=== PATIENT | male | born 1995 | race Caucasian/White ===

== ENCOUNTER 2017-10-15 21:27 | Observation (INO) | payer OTHER ==
[2017-10-15 22:34] LABS: Absolute Lymphocytes (CBC) 2.1 K/uL (0.7-4.9); Absolute Monocytes 1.2 K/uL (0.1-1.3); Absolute Neutrophil 11.3 K/uL (1.8-8.0); Albumin 4.5 g/dL (3.4-5.0); Basophils % 0.3 % (0-1.3); Bilirubin Direct 0.1 mg/dL (0-0.2); Bilirubin Total 0.6 mg/dL (0.2-1.0); Eosinophils % 0.9 % (0-4.4); Hematocrit 42.4 % (39.6-49.0); Lymphocytes % 14.4 % (15.3-44.8); MCH 30.6 pg (27.0-35.0); MCV 89.7 fL (80-100); MPV 8.4 fL (7.6-11.3); Monocytes % 7.9 % (3.3-12.3); Protein, Total 8.4 g/dL (6.4-8.2); RBC Red Blood Cell Count 4.73 M/uL (4.33-5.43)
[2017-10-15 23:02] LABS: Urine Blood NEGATIVE (NEG); Urine Glucose NEGATIVE (NEG); Urine Protein 1+ (NEG); Urine Specific Gravity 1.025 (1.005-1.030)
[2017-10-15] MEDS ORDERED: ONDANSETRON 4 MG/2 ML VIAL ONE (23:50)
[2017-10-16] MEDS ORDERED: PIPER/TAZO/NS 3.375gm 3.375 GM/100 ML BAG ONE (01:44)
--- NOTE | 2017-10-16 01:52 | EDPHYS ---
Physician Documentation [facility] Name: Sachin Manjarrez Age: 22 yrs Sex: Male : 1995 Arrival Date: 10/15/2017 Time: 21:28 Bed 16 Private MD: ED Physician Hans Pride HPI: 10/15 22:09 This 22 yrs old Male presents to ER via Ambulatory with complaints of jr8 Abdominal Pain, Testicular Pain. 22:09 The patient presents with abdominal pain right lower quadrant. Onset: The jr8 symptoms/episode began/occurred acutely, today. The symptoms radiate to right testicle. Associated signs and symptoms: none. The symptoms are described as sharp. Modifying factors: The symptoms are alleviated by nothing, the symptoms are aggravated by nothing. Severity of pain: At its worst the pain was moderate in the emergency department the pain is unchanged. The patient has not experienced similar symptoms in the past. Patient stated that the pain started while playing basketball. Denies trauma . Historical: - Allergies: 21:35 No Known Allergies; aa1 - Home Meds: 21:35 None [Active]; aa1 - PMHx: 21:35 None; aa1 - PSHx: 21:35 Tonsillectomy; Adenoids; aa1 - Immunization history:: Adult Immunizations up to date. - Social history:: Smoking status: Patient/guardian denies using tobacco. - Ebola Screening: : No symptoms or risks identified at this time. ROS: 22:09 Eyes: Negative for injury, pain, redness, and discharge, ENT: Negative for injury, jr8 pain, and discharge, Neck: Negative for injury, pain, and swelling, Cardiovascular: Negative for chest pain, palpitations, and edema, Respiratory: Negative for shortness of breath, cough, wheezing, and pleuritic chest pain, Back: Negative for injury and pain, MS/Extremity: Negative for injury and deformity, Skin: Negative for injury, rash, and discoloration, Neuro: Negative for headache, weakness, numbness, tingling, and seizure. 22:09 Abdomen/GI: Positive for abdominal pain, Negative for nausea, vomiting, and diarrhea, abdominal cramps, abdominal distension, anorexia, dysphagia, hematemesis, black/tarry stool, rectal pain, rectal bleeding, bowel incontinence, flatulence. 22:09 : Positive for testicular pain Negative for urinary symptoms, urinary frequency, small amounts, burning with urination, penile discharge, penile pain. Exam: 22:09 Eyes: Pupils equal round and reactive to light, extra-ocular motions intact. Lids and jr8 lashes normal. Conjunctiva and sclera are non-icteric and not injected. Cornea within normal limits. Periorbital areas with no swelling, redness, or edema. ENT: Nares patent. No nasal discharge, no septal abnormalities noted. Tympanic membranes are normal and external auditory canals are clear. Oropharynx with no redness, swelling, or masses, exudates, or evidence of obstruction, uvula midline. Mucous membranes moist. Neck: Trachea midline, no thyromegaly or masses palpated, and no cervical lymphadenopathy. Supple, full range of motion without nuchal rigidity, or vertebral point tenderness. No Meningismus. Cardiovascular: Regular rate and rhythm with a normal S1 and S2. No gallops, murmurs, or rubs. Normal PMI, no JVD. No pulse deficits. Respiratory: Lungs have equal breath sounds bilaterally, clear to auscultation and percussion. No rales, rhonchi or wheezes noted. No increased work of breathing, no retractions or nasal flaring. Back: No spinal tenderness. No costovertebral tenderness. Full range of motion. Skin: Warm, dry with normal turgor. Normal color with no rashes, no lesions, and no evidence of cellulitis. MS/ Extremity: Pulses equal, no cyanosis. Neurovascular intact. Full, normal range of motion. Neuro: Awake and alert, GCS 15, oriented to person, place, time, and situation. Cranial nerves II-XII grossly intact. Motor strength 5/5 in all extremities. Sensory grossly intact. Cerebellar exam normal. Normal gait. 22:09 Abdomen/GI: Inspection: abdomen appears normal, Bowel sounds: active, all quadrants, Palpation: soft, in all quadrants, mild abdominal tenderness, in the right lower quadrant, mass, is not appreciated, rebound tenderness, is not appreciated, voluntary guarding, is not appreciated, involuntary guarding, is not appreciated, no appreciated organomegaly, Indicators: McBurney's point is not tender, Corey's sign is negative, Rovsing's sign is positive, Obturator sign is negative, Psoas sign is positive, Liver: no appreciated palpable abnormalities, Hernia: not appreciated. 22:09 : CVA tenderness, is absent, Male external genitalia: normal, no abrasion, no discharge, no erythema, no injury, no swelling, no tenderness, no evidence of ulceration. Vital Signs: 21:35 BP 117 / 75; Pulse 87; Resp 16; Temp 98.4; Pulse Ox 100% on R/A; Weight 56.7 kg; Height aa1 5 ft. 9 in. (175.26 cm); Pain 7/10; 22:39 BP 133 / 92; Pulse 64; Resp 18; Pulse Ox 100% on R/A; aa1 23:30 BP 132 / 89; Pulse 63; Resp 16; Pulse Ox 98% on R/A; aa1 10/16 01:16 BP 109 / 69; Pulse 80; Resp 16; Pulse Ox 97% ; aa1 02:00 BP 120 / 70; Pulse 66; Resp 16; Temp 98.6; Pulse Ox 96% on R/A; aa1 03:00 BP 109 / 78; Pulse 57; Resp 16; Temp 98.6; Pulse Ox 97% on R/A; aa1 10/15 21:35 Body Mass Index 18.46 (56.70 kg, 175.26 cm) aa MDM: 10/15 21:42 Patient medically screened. [facility] 10/16 01:42 Data reviewed: vital signs, nurses notes, lab test result(s), radiologic studies, CT jr8 scan, and as a result, I will admit patient. Data interpreted: Pulse oximetry: on room air is 97 %. Interpretation: normal. Counseling: I had a detailed discussion with the patient and/or guardian regarding: the historical points, exam findings, and any diagnostic results supporting the discharge/admit diagnosis, lab results, radiology results, the need for further work-up and treatment in the hospital. ED course: Dr. Pride called Dr. Chase for admission. Will see and admit patient. . 10/15 21:42 Order name: Basic Metabolic Panel; Complete Time: 22:50 8 10/15 21:42 Order name: CBC with Diff; Complete Time: 22:50 [facility] 10/15 21:42 Order name: Creatinine for Radiology; Complete Time: 22:50 10/15 21:42 Order name: Hepatic Function; Complete Time: 22:50 [facility] 10/15 22:01 Order name: Urine Dipstick--Ancillary (enter results); Complete Time: 23:06 2 10/15 22:04 Order name: CT Abd/Pelvis - W/Contrast [facility] 10/15 21:42 Order name: IV Saline Lock; Complete Time: 22:01 jr8 10/15 21:42 Order name: Labs collected and sent; Complete Time: 22: [facility] 10/15 21:42 Order name: Urine Dipstick-Ancillary (obtain specimen); Complete Time: 22: [facility] Administered Medications: 10/15 23:53 Drug: Zofran 4 mg Route: IVP; Site: left antecubital; 10/16 01:45 Follow up: Response: No adverse reaction; Nausea unchanged aa1 01:45 Drug: Zosyn 3.375 grams Route: IVPB; Infused Over: 60 mins; Site: left antecubital; aa1 02:45 Follow up: IV Status: Completed infusion aa1 01:50 Drug: NS 0.9% 1000 ml Route: IV; Rate: 100 ml/hr; Site: left antecubital; aa1 03:18 Follow up: IV Status: Infusion continued upon admission aa1 01:50 Drug: Phenergan 12.5 mg Route: IVP; Site: left antecubital; aa1 03:18 Follow up: Response: No adverse reaction; Nausea is decreased aa1 Disposition: 20:34 Co-signature as Attending Physician, Hans Pride MD I agree with the assessment and wa plan of care. Disposition: 10/16/17 01:51 Hospitalization ordered by Darrius Chase for Inpatient Admission. Preliminary diagnosis is Acute appendicitis. - Bed requested for Telemetry/MedSurg (Inpatient). - Status is Inpatient Admission. ea - Condition is Stable. - Problem is new. - Symptoms are unchanged. UTI on Admission? No Signatures: Dispatcher [employer] Socorro Barnard RN RN kl Kern, Alissa, RN RN aa1 Alan Villanueva PA PA jr8 Nickie Degroot RN RN ea Appiah, William, MD MD wi Corrections: (The following items were deleted from the chart) 03:07 01:51 Hospitalization Ordered by Darrius Chase MD for Inpatient Admission. Preliminary kl diagnosis is Acute appendicitis. Bed requested for Telemetry/MedSurg (Inpatient). Status is Inpatient Admission. Condition is Stable. Problem is new. Symptoms are unchanged. UTI on Admission? No. jr8 03:31 03:07 10/16/2017 01:51 Hospitalization Ordered by Darrius Chase MD for Inpatient ea Admission. Preliminary diagnosis is Acute appendicitis. Bed requested for Telemetry/MedSurg (Inpatient). Status is Inpatient Admission. Condition is Stable. Problem is new. Symptoms are unchanged. UTI on Admission? No. kl
--- NOTE | 2017-10-16 01:52 | ER ---
Nurse's Notes [facility] Name: Sachin Manjarrez Age: 22 yrs Sex: Male : 1995 Arrival Date: 10/15/2017 Time: 21:28 Bed 16 Private MD: Diagnosis: Acute appendicitis Presentation: 10/15 21:34 Presenting complaint: Patient states: RLQ pain that radiates to groin x 2 hours. aa1 Reports pain began suddenly while playing basketball. Denies N/V or fever. Transition of care: patient was not received from another setting of care. Onset of symptoms was October 15, 2017. Risk Assessment: Do you want to hurt yourself or someone else? Patient reports no desire to harm self or others. Initial Sepsis Screen: Does the patient meet any 2 criteria? No. Patient's initial sepsis screen is negative. Does the patient have a suspected source of infection? Yes: Acute abdominal pain. Care prior to arrival: None. 21:34 Method Of Arrival: Ambulatory aa1 21:34 Acuity: EDDY 3 aa1 Triage Assessment: 21:35 General: Appears in no apparent distress. comfortable, Behavior is calm, cooperative, aa1 appropriate for age. Historical: - Allergies: 21:35 No Known Allergies; aa1 - Home Meds: 21:35 None [Active]; aa1 - PMHx: 21:35 None; aa1 - PSHx: 21:35 Tonsillectomy; Adenoids; aa1 - Immunization history:: Adult Immunizations up to date. - Social history:: Smoking status: Patient/guardian denies using tobacco. - Ebola Screening: : No symptoms or risks identified at this time. Screenin:06 Abuse screen: Denies threats or abuse. Denies injuries from another. Nutritional aa1 screening: No deficits noted. Tuberculosis screening: No symptoms or risk factors identified. Fall Risk None identified. Assessment: 22:06 General: Appears in no apparent distress. comfortable, Behavior is calm, cooperative, aa1 appropriate for age. Pain: Complains of pain in right lower quadrant Pain radiates to groin Pain began 2 hours ago. Is continuous. Neuro: Level of Consciousness is awake, alert, obeys commands, Oriented to person, place, time, situation, Moves all extremities. Full function Gait is steady. Respiratory: Airway is patent Respiratory effort is even, unlabored, Respiratory pattern is regular, symmetrical. GI: Abdomen is non-distended, Bowel sounds present X 4 quads. Abd is soft X 4 quads Abdomen is tender to palpation in right lower quadrant Patient currently denies diarrhea, nausea, vomiting. : Reports pain in right in suprapubic area lower quadrant(s). EENT: No signs and/or symptoms were reported regarding the EENT system. Derm: Skin is intact, is healthy with good turgor, Skin is pink, warm \T\ dry. Musculoskeletal: Circulation, motion, and sensation intact. Capillary refill < 3 seconds. 22:40 Reassessment: Patient appears in no apparent distress at this time. Patient and/or aa1 family updated on plan of care and expected duration. Pain level reassessed. Patient is alert, oriented x 3, equal unlabored respirations, skin warm/dry/pink. Awaiting CT. CT notified pt finished contrast 5 mins after it was delivered to pt. 10/16 00:05 Reassessment: Patient appears in no apparent distress at this time. Patient and/or aa1 family updated on plan of care and expected duration. Pain level reassessed. Patient is alert, oriented x 3, equal unlabored respirations, skin warm/dry/pink. Pt taken to CT at this time. 01:00 Reassessment: Patient appears in no apparent distress at this time. Patient and/or aa1 family updated on plan of care and expected duration. Pain level reassessed. Patient is alert, oriented x 3, equal unlabored respirations, skin warm/dry/pink. Awaiting CT results. 02:00 Reassessment: Patient appears in no apparent distress at this time. Patient and/or aa1 family updated on plan of care and expected duration. Pain level reassessed. Patient is alert, oriented x 3, equal unlabored respirations, skin warm/dry/pink. Pt to be admitted for acute appendicitis; awaiting bed assignment. 03:00 Reassessment: Patient appears in no apparent distress at this time. Patient and/or aa1 family updated on plan of care and expected duration. Pain level reassessed. Patient is alert, oriented x 3, equal unlabored respirations, skin warm/dry/pink. Awaiting bed assignment. 03:20 Reassessment: Report given to Vianney on 2nd floor. aa1 Vital Signs: 10/15 21:35 BP 117 / 75; Pulse 87; Resp 16; Temp 98.4; Pulse Ox 100% on R/A; Weight 56.7 kg; Height aa1 5 ft. 9 in. (175.26 cm); Pain 7/10; 22:39 BP 133 / 92; Pulse 64; Resp 18; Pulse Ox 100% on R/A; aa1 23:30 BP 132 / 89; Pulse 63; Resp 16; Pulse Ox 98% on R/A; aa1 10/16 01:16 BP 109 / 69; Pulse 80; Resp 16; Pulse Ox 97% ; aa1 02:00 BP 120 / 70; Pulse 66; Resp 16; Temp 98.6; Pulse Ox 96% on R/A; aa1 03:00 BP 109 / 78; Pulse 57; Resp 16; Temp 98.6; Pulse Ox 97% on R/A; aa1 10/15 21:35 Body Mass Index 18.46 (56.70 kg, 175.26 cm) aa1 ED Course: 10/15 21:28 Patient arrived in ED. ds1 21:35 Triage completed. aa1 21:35 Arm band placed on right wrist. Patient placed in an exam room, on a stretcher. aa1 21:42 Alan Villanueva PA is PHCP. jr8 21:42 Hans Pride MD is Attending Physician. jr8 21:49 Taty Novoa, RN is Primary Nurse. aj 21:50 Initial lab(s) drawn, by ED staff, sent to lab. Inserted saline lock: 20 gauge in right aa1 antecubital area, using aseptic technique. ,using aseptic technique. by Nickie Degroot RN Blood collected. 22:03 Taty Novoa, RN is Primary Nurse. aj 22:06 Patient has correct armband on for positive identification. Placed in gown. Bed in low aa1 position. Call light in reach. Pulse ox on. NIBP on. 10/16 00:[address] via wheelchair. kw1 00:23 CT Abd/Pelvis - W/Contrast In Process Unspecified. EDMS 00:24 CT completed. Patient tolerated procedure well. Patient moved back from CT. kw1 01:51 Darrius Chase MD is Hospitalizing Provider. jr8 03:13 No provider procedures requiring assistance completed. Patient admitted, IV remains in aa1 place. Administered Medications: 10/15 23:53 Drug: Zofran 4 mg Route: IVP; Site: left antecubital; ea 10/16 01:45 Follow up: Response: No adverse reaction; Nausea unchanged aa 01:45 Drug: Zosyn 3.375 grams Route: IVPB; Infused Over: 60 mins; Site: left antecubital; aa1 02:45 Follow up: IV Status: Completed infusion aa1 01:50 Drug: NS 0.9% 1000 ml Route: IV; Rate: 100 ml/hr; Site: left antecubital; aa1 03:18 Follow up: IV Status: Infusion continued upon admission aa1 01:50 Drug: Phenergan 12.5 mg Route: IVP; Site: left antecubital; aa1 03:18 Follow up: Response: No adverse reaction; Nausea is decreased aa Outcome: 01:51 Decision to Hospitalize by Provider. jr8 03:21 Admitted to Med/surg accompanied by tech, family with patient, via wheelchair, room aa1 210, with chart, Report called to Vianney 03:21 Condition: stable 03:21 Instructed on the need for admit, Demonstrated understanding of instructions. 03:31 Patient left the ED. ea Signatures: Dispatcher [employer] EDMS Vianney England, RN LYNDSEY aa1 Taty Novoa RN RN aj Sanford, Demi ds1 Alan Villanueva PA PA jr8 Nickie Degroot RN RN ea Wilhelm, Kimberly kw1
[2017-10-16] MEDS ORDERED: PROMETHAZINE 25 MG/ML VIAL ONE (01:53)
[2017-10-16] MEDS ORDERED: NA CHLORIDE 0.9% 1,000 ML ONE (01:53)
[2017-10-16] MEDS ORDERED: MORPHINE 4 MG/ML SYR IV PRN ×2 (03:35→09:09)
[2017-10-16] MEDS: NA CHLORIDE 0.9% 1,000 ML IV SCH ×2 (04:05→16:43)
[2017-10-16] MEDS: ONDANSETRON 4 MG/2 ML VIAL IV PRN ×2 (04:28→21:12)
[2017-10-16 05:16] VITALS: BMI 18.8
--- NOTE | 2017-10-16 07:36 | P.HP ---
Date of Service: 10/16/17 PC: This 22-year-old male presents emergency room with severe right lower quadrant abdominal pain for diagnosis and treatment. HPC: Patient notice history evening he was having increasing abdominal pain. Began to be more in the right lower quadrant. Radiating down to his testicle. Start hurt when he tried to walk or move. PMH: Negative PSHx: Negative SOC: No known allergy SYS REVIEW: The cough, wheeze, shortness of breath. No chest pain or palpitations. Denies any urinary complaints. O/E awake alert stable HEENT: Within normal limits Chest: Chest movement equal bilaterally ABD: Tenderness with guarding in the right lower quadrant LOCO: Intact DATA: Elevated white cell count, CT scan consistent with clinical findings of acute appendicitis IMPRESSION: Acute abdomen with appendicitis PLAN: I will take him to the operating room for laparoscopic possible open appendectomy. The risks of this procedure have been discussed. The possibility of bleeding, infection, injury to bowel and blood vessels has been described. The possible need for an open and/or further surgeries and procedures was discussed. He understands and wants to proceed.
[2017-10-16] MEDS ORDERED: PROPOFOL 200 MG/20 ML VIAL IV ONE (07:48)
[2017-10-16] MEDS ORDERED: LIDOCAINE 2% MPF 5 ML VIAL ONE (07:48)
[2017-10-16] MEDS ORDERED: FENTANYL CITR 100 MCG/2 ML ONE (07:48)
[2017-10-16] MEDS ORDERED: ROCURONIUM 50 MG/5 ML VIAL IV ONE (07:48)
[2017-10-16] MEDS ORDERED: PIPER/TAZO/NS 3.375gm 3.375 GM/100 ML BAG IVPB SCH (08:00)
[2017-10-16] MEDS: Ringers Lactate 1,000 ML IV ONE ×2 (08:15→08:49)
[2017-10-16] MEDS ORDERED: KETOROLAC 30 MG/ML INJ ONE (08:15)
[2017-10-16] MEDS ORDERED: DEXAMETHASONE 10 MG/ML VIAL ONE (08:15)
[2017-10-16] MEDS ORDERED: ONDANSETRON HCL 40 MG/20 ML VIAL ONE (08:16)
[2017-10-16] MEDS ORDERED: GLYCOPYRROLATE 0.2 MG/ML SYR ONE (08:19)
--- NOTE | 2017-10-16 08:37 | RAD REPORT ---
EXAM DESCRIPTION: CTAbdomen Pelvis W Contrast - 10/16/2017 4:15 am CLINICAL HISTORY: Abdominal pain. ABD PAIN COMPARISON: No comparisons TECHNIQUE: Biphasic CT imaging of the abdomen and pelvis was performed with 100 ml non-ionic IV cont rast. All CT scans are performed using dose optimization technique as appropriate and may include automated exposure control or mA/KV adjustment according to patient size. FINDINGS: The lung bases are clear. The liver, spleen, pancreas, adrenal glands and kidneys are within normal limits. No bowel obstruction, free air, free fluid or abscess. The appendix is dilated to 10 mm and demonstr ates surrounding inflammatory changes. Appendicolith is present. No evidence of significant lymphade nopathy. No suspicious bony findings. IMPRESSION: Acute appendicitis.
[2017-10-16] MEDS ORDERED: NEOSTIGMINE 1 MG/ML -5 ML SYRINGE ONE (08:40)
--- NOTE | 2017-10-16 08:42 | P.OP ---
Preoperative diagnosis: The abdomen with appendicitis Postoperative diagnosis: The same Primary procedure: Laparoscopic appendectomy Anesthesia: General Estimated blood loss: Less than 10 cc Specimen: 1 appendix Findings: Acute appendicitis Operative Technique: The patient brought the operating room and placed supine on the table. After the induction of adequate general endotracheal anesthesia, the area of the abdomen was prepped with a DuraPrep solution, and he was draped in usual aseptic manner. A subumbilical incision was made. This brought down through the skin and subcutaneous tissue. The Visiport was then used to enter the peritoneal cavity. A pneumoperitoneum was established to approximately 12 mm of mercury. A 5 mm trocar was placed. A lower midline, and another 5 and a right upper quadrant. The patient was placed in Trendelenburg and rolled to the left. We could visualize the cecum laying in the true pelvis. There were adhesions to the anterior abdominal wall. The appendix was identified. It was found to be acutely inflamed. Grasped in the body of the appendix. A window was made at the junction of the cecum with the appendix. The linear Stapler was now introduced through the umbilical port site. It was placed across the base of the appendix and fired. The mesentery of the appendix was taken down using judicious electro cautery. This pus was now placed into an Endo pouch, and brought out through the umbilical trocar site. The abdomen was inspected to ensure adequate hemostasis. The umbilical trocar site was approximated using the Endo Close an absorbable suture. The pneumoperitoneum was now collapsed, the trocars withdrawn, and the suture tied. Omero were then applied to the skin At the end of the procedure he was stable when sent to the recovery room. Needle sponge instrument count were correct. No drains were placed. Complications: None Transferred to: Recovery Room Condition: Good
[2017-10-16] MEDS: PIPER/TAZO/NS 3.375gm 3.375 GM/100 ML BAG IVPB SCH ×2 (08:45→16:45)
[2017-10-16] MEDS: HYDROCODONE/APAP 7.5/325 MG TAB PO PRN ×2 (16:42→21:11)
[2017-10-16 22:47] VITALS: O2SAT 98
[2017-10-17] MEDS: NA CHLORIDE 0.9% 1,000 ML IV SCH (01:15)
[2017-10-17] MEDS: PIPER/TAZO/NS 3.375gm 3.375 GM/100 ML BAG IVPB SCH (01:15)
[2017-10-17] MEDS: HYDROCODONE/APAP 7.5/325 MG TAB PO PRN (06:10)
--- NOTE | 2017-10-17 09:06 | P.PN ---
Date of Service: 10/17/17 S: Patient feels well today, has been up ambulating, voiding on its own. Pain is controlled on non narcotics. O: Incisions clean, dressings dry A: Surgically stable status post laparoscopic appendectomy P: Discharge home, patient is see me next week in my office. He is to call for appointment.
[2017-10-17 09:51] VITALS: BP 98/53; TEMP 97.8
== END 2017-10-17 10:24 | disposition home or self-care (01) ==
LOC: ER 21:27 → INTOOBSV 10-16 03:02 → ERHOLD 10-16 03:02 → 2ND 10-16 03:15
PROVIDERS: ADMIT Surgery; ATTEND Surgery
PROC: 0DTJ4ZZ Resection of Appendix, Percutaneous Endoscopic Approach (ICD-10-PCS; principal; 2017-10-16 08:00)
DX: K35.80 Unspecified acute appendicitis (principal)
CPT/HCPCS: 36415; 74177; 80048; 80076; 81003; 85025; 88304; 96361; 96365; 96375; 99285; G0378; J1100; J2405; J2543; J2550; J2710; J3010; J7030; Q9967

== ENCOUNTER 2018-04-21 22:13 | Emergency (ER) | payer OTHER ==
[2018-04-21] MEDS ORDERED: IBUPROFEN 400 MG TAB ONE (22:56)
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
[2018-04-22 01:13] VITALS: BP 127/80; TEMP 97.7; O2SAT 100
--- NOTE | 2018-04-22 08:14 | RAD REPORT ---
EXAM DESCRIPTION: RAD - Hand Right 3 View - 04/21/2018 10:56 pm CLINICAL HISTORY: PAIN Trauma, pain COMPARISON: No comparisons FINDINGS: Fracture is present involving the base of the fifth right metacarpal with mild adjacent so ft tissue swelling. No dislocation evident.
== END 2018-04-21 23:48 | disposition home or self-care (01) ==
LOC: ER 22:13
PROC: 2W3CX1Z Immobilization of Right Lower Arm using Splint (ICD-10-PCS; principal; 2018-04-21)
DX: S62.316A Displaced fracture of base of fifth metacarpal bone, right hand, initial encounter for closed fracture (principal); W22.8XXA Striking against or struck by other objects, initial encounter
CPT/HCPCS: 99283

== ENCOUNTER 2019-02-18 07:23 | Emergency (ER) | payer OTHER ==
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
--- NOTE | 2019-02-18 08:14 | EDPHYS ---
Physician Documentation [facility] Name: Sachin Manjarrez Age: 23 yrs Sex: Male : 1995 Arrival Date: 02/18/2019 Time: 07:26 Bed 15 Private MD: ED Physician Coleman Glez HPI: 02/18 08:10 This 23 yrs old Male presents to ER via Ambulatory with complaints of Pain rn With Urination. 08:10 The patient presents with a possible STD exposure, symptoms include dysuria, green rn penile discharge. 08:10 Onset: The symptoms/episode began/occurred 3 day(s) ago. Modifying factors: The rn symptoms are alleviated by nothing, the symptoms are aggravated by urinating. Severity of symptoms: At their worst the symptoms were mild, in the emergency department the symptoms are unchanged. The patient has not experienced similar symptoms in the past. Reports thinks may have STI, has dysuria and green/white discharge. Reports multiple partners and had symptoms after unprotected sex with one of them. No rash. . Historical: - Allergies: 07:40 No Known Allergies; ss - Home Meds: 07:40 None [Active]; ss - PMHx: 07:40 None; ss - PSHx: 07:40 Appendectomy; Tonsillectomy; ss - Immunization history:: Adult Immunizations up to date. - Social history:: Smoking status: Patient/guardian denies using tobacco. - Ebola Screening: : Patient denies exposure to infectious person Patient denies travel to an Ebola-affected area in the 21 days before illness onset. - Family history:: not pertinent. - Hospitalizations: : No recent hospitalization is reported. ROS: 08:10 Constitutional: Negative for fever, chills, and weight loss, Abdomen/GI: Negative for rn abdominal pain, nausea, vomiting, diarrhea, and constipation, Back: Negative for injury and pain, : + dysuria and penile discharge Exam: 08:10 Constitutional: This is a well developed, well nourished patient who is awake, alert, rn and in no acute distress. Vital Signs: 07:40 BP 109 / 77; Pulse 62; Resp 16; Temp 98.2(TE); Pulse Ox 97% on R/A; Weight 56.7 kg; m[facility]5 Height 5 ft. 9 in. (175.26 cm); Pain 0/10; 07:55 BP 109 / 77; Pulse 62; Resp 16; Pulse Ox 97% on R/A; [facility] 07:40 Body Mass Index 18.46 (56.70 kg, 175.26 cm) [facility] MDM: 07:32 Patient medically screened. rn 08:10 Differential diagnosis: UTI, urethritis, STI. Data reviewed: vital signs, nurses notes, turntable engineer test result(s), and as a result, I will discharge patient. Counseling: I had a detailed discussion with the patient and/or guardian regarding: the historical points, exam findings, and any diagnostic results supporting the discharge/admit diagnosis, the need for outpatient follow up, to return to the emergency department if symptoms worsen or persist or if there are any questions or concerns that arise at home. Special discussion: I discussed with the patient/guardian in detail that at this point there is no indication for admission to the hospital. It is understood, however, that if the symptoms persist or worsen the patient needs to return immediately for re-evaluation. ED course: UA neg for infection, will treat empirically for STI. . 02/18 07:55 Order name: Urine Dipstick--Ancillary (enter results) bd Administered Medications: 08:25 Drug: Rocephin (cefTRIAXone) 250 mg Route: IM; Site: left ventrogluteal; jl7 08:25 Drug: AZITHromycin 1 grams Route: PO; jl7 Disposition: 02/18/19 08:13 Discharged to Home. Impression: Dysuria, Unspecified sexually transmitted disease. - Condition is Stable. - Discharge Instructions: Dysuria, Sexually Transmitted Disease. - Prescriptions for Doxycycline Monohydrate 100 mg Oral Tablet - take 1 tablet by ORAL route every 12 hours for 14 days; 28 tablet. - Medication Reconciliation Form, Thank You Letter, Antibiotic Education, Prescription Opioid Use form. - Follow up: Private Physician; When: As needed; Reason: Recheck today's complaints, Re-evaluation by your physician. - Problem is new. - Symptoms are unchanged. Signatures: Dispatcher [employer] EDMS Coleman Glez MD MD rn Smirch, Shelby, RN RN ss Leal, Jahala, RN RN jl7 Corrections: (The following items were deleted from the chart) 08:40 08:13 02/18/2019 08:13 Discharged to Home. Impression: Dysuria; Unspecified sexually jl7 transmitted disease. Condition is Stable. Forms are Medication Reconciliation Form, Thank You Letter, Antibiotic Education, Prescription Opioid Use. Follow up: Private Physician; When: As needed; Reason: Recheck today's complaints, Re-evaluation by your physician. Problem is new. Symptoms are unchanged. rn
[2019-02-18] MEDS ORDERED: AZITHROMYCIN 250 MG TAB ONE (08:18)
[2019-02-18] MEDS ORDERED: CEFTRIAXONE 250 MG/VIAL ONE ×2 (08:18→08:20)
[2019-02-18] MEDS ORDERED: CEFTRIAXONE 1000 MG/VIAL ONE (08:19)
[2019-02-18] MEDS ORDERED: WATER FOR INJ,STERILE 10 ML ONE (08:20)
[2019-02-18 09:16] LABS: Urine Blood TRACE (NEG); Urine Glucose NEGATIVE (NEG); Urine Protein NEGATIVE (NEG); Urine Specific Gravity 1.025 (1.005-1.030); Urine pH 5.5 (5.0-7.0)
[2019-02-18 10:13] VITALS: BP 109/77; TEMP 98.2; O2SAT 97
== END 2019-02-18 08:40 | disposition home or self-care (01) ==
LOC: ER 07:23
DX: A64 Unspecified sexually transmitted disease (principal)
CPT/HCPCS: 81003; 96372; 99283; J0696

== ENCOUNTER 2020-08-09 06:33 | Emergency (ER) | payer OTHER, SELFPAY ==
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
--- NOTE | 2020-08-09 06:53 | ER ---
Nurse's Notes [facility] Name: Sachin Manjarrez Age: 24 yrs Sex: Male : 1995 Arrival Date: 08/09/2020 Time: 06:34 Bed Waiting Private MD: Diagnosis: Presentation: 08/09 06:51 Chief complaint: Patient states: he is pretty sure he has chlamydia pt given bb information for [facility] and chose to leave the ED. ED Course: 06:34 Patient arrived in ED. am4 Administered Medications: No medications were administered Outcome: 06:52 Patient left the ED. bb Signatures: Sara Mohan RN RN Melissa Roesn am4
== END 2020-08-09 06:52 | disposition left against medical advice (07) ==
LOC: ER 06:33
DX: Z53.21 Procedure and treatment not carried out due to patient leaving prior to being seen by health care provider (principal)
CPT/HCPCS: 99281

== ENCOUNTER 2020-09-27 10:20 | Emergency (ER) | payer SELFPAY ==
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
[2020-09-27 10:53] LABS: Absolute Lymphocytes (CBC) 1.7 K/uL (0.7-4.9); Basophils % 0.7 % (0-1.3); Hematocrit 45.2 % (39.6-49.0); Lymphocytes % 28.4 % (15.3-44.8); MPV 8.5 fL (7.6-11.3); RBC Red Blood Cell Count 4.85 M/uL (4.33-5.43)
[2020-09-27 11:10] LABS: BUN Blood Urea Nitrogen 15 mg/dL (7-18); Bicarbonate 31 mmol/L (21-32); Glucose Level 91 mg/dL (74-106); Sodium Level 140 mmol/L (136-145)
--- NOTE | 2020-09-27 11:18 | RAD REPORT ---
EXAM DESCRIPTION: CT - Stone Protocol - 09/27/2020 10:53 am CLINICAL HISTORY: Flank pain. HEMATURIA COMPARISON: Abdomen Pelvis W Contrast dated 10/15/2017 TECHNIQUE: Axial images were obtained without oral or IV contrast. Lack of contrast limits solid org an and vascular assessment. The [id number] spans the entirety of the system partially obscuring uppermost abdomen and lung bases. Coronal reformatted images were obtained and reviewed. All CT scans are performed using dose optimization technique as appropriate and may include automated exposure control or mA/KV adjustment according to patient size. FINDINGS: The lower lung flores are clear. Imaged portions of the liver and spleen show no suspicious findings on non-contrast imaging. The panc reas and adrenal glands are normal. No pathologic lymphadenopathy in the abdomen or pelvis. No renal calculi are identified. No hydronephrosis. 2 mm calcification in the urinary bladder could b e a recently passed stone. No bowel obstruction, free air, free fluid or abscess. Appendectomy. No significant bony abnormality. IMPRESSION: 2 mm calcification in the urinary bladder could be a recently passed tract stone.
[2020-09-27 11:33] LABS: Urine Appearance CLOUDY (Clear); Urine Color ORANGE (Yellow)
[2020-09-27 11:34] LABS: Urine Blood 3+ (Negative); Urine Glucose NEGATIVE (Negative); Urine Protein 2+ (Negative); Urine Specific Gravity >=1.030 (1.005-1.030); Urine Urobilinogen 0.2 mg/dL (0.2-1.0)
[2020-09-27 11:36] LABS: Urine Bacteria >50 /HPF (NONE SEEN); Urine Bilirubin NEGATIVE (Negative); Urine RBC LOADED /HPF (NONE SEEN); Urine Yeast MANY (NONE SEEN)
[2020-09-27 11:37] LABS: Calcium Oxalate Crystals- Ur PRESENT (NONE SEEN)
--- NOTE | 2020-09-27 11:54 | ER ---
Nurse's Notes [facility] Name: Sachin Manjarrez Age: 25 yrs Sex: Male : 1995 Arrival Date: 09/27/2020 Time: 10:22 Bed 19 Private MD: Diagnosis: Kidney Stone/ Calculus in bladder Presentation: 09/27 10:31 Chief complaint: Patient states: Blood in urine and L testicular pain since last night. ca1 Hx of Kidney Stone. Coronavirus screen: Client denies travel out of the [place] in the last 14 days. At this time, the client does not indicate any symptoms associated with coronavirus-19. Ebola Screen: Patient negative for fever greater than or equal to 101.5 degrees Fahrenheit, and additional compatible Ebola Virus Disease symptoms Patient denies exposure to infectious person. Patient denies travel to an Ebola-affected area in the 21 days before illness onset. No symptoms or risks identified at this time. Initial Sepsis Screen: Does the patient meet any 2 criteria? No. Patient's initial sepsis screen is negative. Does the patient have a suspected source of infection? No. Patient's initial sepsis screen is negative. Risk Assessment: Do you want to hurt yourself or someone else? Patient reports no desire to harm self or others. Onset of symptoms was September 27, 2020. 10:31 Method Of Arrival: Ambulatory ca1 10:31 Acuity: EDDY 3 ca1 Triage Assessment: 10:35 General: Appears in no apparent distress. uncomfortable, Behavior is cooperative, bp appropriate for age, anxious. Pain: Complains of pain in pelvis. EENT: No deficits noted. Neuro: No deficits noted. Cardiovascular: No deficits noted. Respiratory: No deficits noted. GI: No signs and/or symptoms were reported involving the gastrointestinal system. : Reports Scrotal pain: sudden onset. Derm: No deficits noted. Musculoskeletal: No deficits noted. Historical: - Allergies: 10:33 No Known Allergies; ca1 - Home Meds: 10:33 None [Active]; ca1 - PMHx: 10:33 Kidney stone; ca1 - PSHx: 10:33 Appendectomy; ca1 - Immunization history:: Client reports having NOT received the Covid vaccine. Flu vaccine is not up to date. - Social history:: Smoking status: Reported history of juuling and/or vaping. Screenin:36 Abuse screen: Denies threats or abuse. Denies injuries from another. Nutritional bp screening: No deficits noted. Tuberculosis screening: No symptoms or risk factors identified. Fall Risk None identified. Assessment: 10:35 General: SEE TRIAGE NOTE. bp 12:36 Reassessment: PT D/C HOME AMBULATORY, DX WITH RENAL CALCULUS. bp Vital Signs: 10:31 BP 115 / 73; Pulse 65; Resp 18 S; Temp 97.7(TE); Pulse Ox 99% on R/A; Weight 58.97 kg ca1 (R); Height 5 ft. 9 in. (175.26 cm) (R); Pain 7/10; 10:45 BP 120 / 82; Pulse 69; Resp 17; Pulse Ox 100% ; bp 12:35 BP 101 / 77; Pulse 63; Resp 18; Temp 98.1; Pulse Ox 100% ; bp 10:31 Body Mass Index 19.20 (58.97 kg, 175.26 cm) ca1 ED Course: 10:22 Patient arrived in ED. rg4 10:32 Triage completed. ca1 10:33 Arm band placed on right wrist. ca1 10:34 Gunnar Bhatia, RN is Primary Nurse. bp 10:36 Alan Villanueva PA is PHCP. jr8 10:36 Coleman Glez MD is Attending Physician. jr8 10:49 UA Sent. mh5 10:50 Patient has correct armband on for positive identification. Bed in low position. Call mh5 light in reach. Side rails up X 1. Pulse ox on. NIBP on. 10:50 Urine collected: clean catch specimen, blood tinged. mh5 10:54 CT Stone Protocol In Process Unspecified. EDMS 11:02 Inserted saline lock: 18 gauge in left antecubital area, using aseptic technique. Blood tr6 collected. 11:53 Dominic Taylor MD is Referral Physician. jr8 12:36 No provider procedures requiring assistance completed. IV discontinued, intact, bp bleeding controlled, No redness/swelling at site. Pressure dressing applied. Administered Medications: No medications were administered Outcome: 11:54 Discharge ordered by . jr8 12:36 Discharged to home ambulatory. bp 12:36 Condition: stable 12:36 Discharge instructions given to patient, Instructed on discharge instructions, follow up and referral plans. medication usage, Demonstrated understanding of instructions, follow-up care, medications, Prescriptions given X 1. 12:38 Patient left the ED. bp Signatures: Dispatcher [employer] EDMS Alan Villanueva PA PA jr8 Garcia, Rubi rg4 Jes Diane [facility] Gunnar Bhatia, RN RN Pilar Clarke RN RN [facility] Dora Minor RN RN tr6 Corrections: (The following items were deleted from the chart) 10:54 10:49 UA MICROSCOPIC+U.LAB.BRZ drawn and sent. [facility] EDWY 10:55 10:49 Urinalysis drawn and sent. [address]
--- NOTE | 2020-09-27 11:55 | EDPHYS ---
Physician Documentation [facility] Name: Sachin Manjarrez Age: 25 yrs Sex: Male : 1995 Arrival Date: 09/27/2020 Time: 10:22 Bed 19 Private MD: ED Physician Coleman Glez HPI: 09/27 11:20 This 25 yrs old Male presents to ER via Ambulatory with complaints of Blood jr8 in Urine, Testicular Pain. 11:20 Onset: The symptoms/episode began/occurred acutely, today. Associated signs and jr8 symptoms: The patient has no apparent associated signs or symptoms. Modifying factors: The patient symptoms are alleviated by nothing, the patient symptoms are aggravated by nothing. The patient has not experienced similar symptoms in the past. The patient has not recently seen a physician. Historical: - Allergies: 10:33 No Known Allergies; ca1 - Home Meds: 10:33 None [Active]; ca1 - PMHx: 10:33 Kidney stone; ca1 - PSHx: 10:33 Appendectomy; ca1 - Immunization history:: Client reports having NOT received the Covid vaccine. Flu vaccine is not up to date. - Social history:: Smoking status: Reported history of juuling and/or vaping. ROS: 11:20 Eyes: Negative for injury, pain, redness, and discharge, ENT: Negative for injury, jr8 pain, and discharge, Neck: Negative for injury, pain, and swelling, Cardiovascular: Negative for chest pain, palpitations, and edema, Respiratory: Negative for shortness of breath, cough, wheezing, and pleuritic chest pain, Abdomen/GI: Negative for abdominal pain, nausea, vomiting, diarrhea, and constipation, Back: Negative for injury and pain, MS/Extremity: Negative for injury and deformity, Skin: Negative for injury, rash, and discoloration, Neuro: Negative for headache, weakness, numbness, tingling, and seizure. 11:20 : Positive for hematuria, testicular pain Exam: 11:20 Constitutional: This is a well developed, well nourished patient who is awake, alert, jr8 and in no acute distress. Cardiovascular: Regular rate and rhythm with a normal S1 and S2. No gallops, murmurs, or rubs. Normal PMI, no JVD. No pulse deficits. Respiratory: Lungs have equal breath sounds bilaterally, clear to auscultation and percussion. No rales, rhonchi or wheezes noted. No increased work of breathing, no retractions or nasal flaring. Abdomen/GI: Soft, non-tender, with normal bowel sounds. No distension or tympany. No guarding or rebound. No evidence of tenderness throughout. Back: No spinal tenderness. No costovertebral tenderness. Full range of motion. Skin: Warm, dry with normal turgor. Normal color with no rashes, no lesions, and no evidence of cellulitis. MS/ Extremity: Pulses equal, no cyanosis. Neurovascular intact. Full, normal range of motion. Neuro: Awake and alert, GCS 15, oriented to person, place, time, and situation. Cranial nerves II-XII grossly intact. Motor strength 5/5 in all extremities. Sensory grossly intact. Vital Signs: 10:31 BP 115 / 73; Pulse 65; Resp 18 S; Temp 97.7(TE); Pulse Ox 99% on R/A; Weight 58.97 kg ca1 (R); Height 5 ft. 9 in. (175.26 cm) (R); Pain 7/10; 10:45 BP 120 / 82; Pulse 69; Resp 17; Pulse Ox 100% ; bp 12:35 BP 101 / 77; Pulse 63; Resp 18; Temp 98.1; Pulse Ox 100% ; bp 10:31 Body Mass Index 19.20 (58.97 kg, 175.26 cm) ca1 MDM: 10:37 Patient medically screened. jr8 11:20 Data reviewed: vital signs, nurses notes, lab test result(s), radiologic studies, CT jr8 scan. Data interpreted: Pulse oximetry: on room air is 99 %. Interpretation: normal. Counseling: I had a detailed discussion with the patient and/or guardian regarding: the historical points, exam findings, and any diagnostic results supporting the discharge/admit diagnosis, lab results, radiology results, the need for outpatient follow up, a urologist, to return to the emergency department if symptoms worsen or persist or if there are any questions or concerns that arise at home. ED course: Discussed with patient that the now resolved testicular pain and hematuria was most likely from the recently passed stone in the bladder that we see on the CT scan. Recommended f/u with urology. If worse to come back for further evaluation. Patient good with plan . 09/27 10:37 Order name: CBC with Diff; Complete Time: 11:03 jr8 09/27 10:37 Order name: Basic Metabolic Panel; Complete Time: 11:12 jr8 09/27 10:46 Order name: UA eb 09/27 10:55 Order name: Urinalysis W/Microscopic; Complete Time: 11:53 EDMS 09/27 10:37 Order name: Urine Dipstick-Ancillary (obtain specimen); Complete Time: 10:44 jr8 09/27 10:37 Order name: CT Stone Protocol; Complete Time: 11:19 jr8 09/27 10:37 Order name: IV; Complete Time: 10:44 jr8 09/27 11:38 Order name: Urine Culture EDMS Administered Medications: No medications were administered Disposition: 16:59 Co-signature as Attending Physician, Coleman Glez MD. rn 16:59 Attestation: The patient's history, exam findings, diagnostics, and a summary of any rn interventions or procedures was reviewed in detail with Alan MILLAN. Disposition Summary: 09/27/20 11:54 Discharge [facility]dered [facility] Problem: new jr8 Symptoms: have improved jr8 Condition: Stable jr8 Diagnosis - Kidney Stone/ Calculus in bladder jr8 Followup: jr8 - With: Dominic Taylor MD - When: 5 - 6 days - Reason: Recheck today's complaints, Continuance of care, Re-evaluation by your physician Discharge Instructions: - Discharge Summary Sheet jr8 - Kidney Stones jr8 Forms: - Medication Reconciliation Form jr8 - Thank You Letter jr8 - Antibiotic Education jr8 - Prescription Opioid Use jr8 - Work release form eb Prescriptions: - Cipro 500 mg Oral Tablet - take 1 tablet by ORAL route every 12 hours for 7 days; 14 tablet; Refills: 0, jr8 Product Selection Permitted Signatures: Dispatcher [employer] EDMS Coleman Glez MD MD rn Roszak, Josh, PA PA jr8 Pilar Cunningham RN RN ca1 Corrections: (The following items were deleted from the chart) 10:54 10:37 UA MICROSCOPIC+U.LAB.BRZ ordered. EDMS EDMS 10:55 10:46 Urinalysis ordered. EDMS EDMS
[2020-09-27 12:46] VITALS: O2SAT 100
[2020-09-27 12:48] VITALS: BP 101/77; TEMP 98.1
== END 2020-09-27 12:38 | disposition home or self-care (01) ==
LOC: ER 10:20
DX: N20.0 Calculus of kidney (principal); N21.0 Calculus in bladder
CPT/HCPCS: 36415; 74176; 76377; 80048; 81001; 85025; 87086; 87088; 99284

== ENCOUNTER 2021-08-11 14:16 | Emergency (ER) | payer SELFPAY ==
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
--- NOTE | 2021-08-11 17:04 | ER ---
Nurse's Notes [facility] Name: Sachin Manjarrez Age: 25 yrs Sex: Male : 1995 Arrival Date: 08/11/2021 Time: 14:21 Bed DIS1 Private MD: Diagnosis: influenza Presentation: 08/11 15:05 Chief complaint: Patient states: cough, body aches, fever since Sunday. Coronavirus iw screen: At this time, the client does not indicate any symptoms associated with coronavirus-19. Ebola Screen: Patient negative for fever greater than or equal to 101.5 degrees Fahrenheit, and additional compatible Ebola Virus Disease symptoms Patient denies exposure to infectious person. Patient denies travel to an Ebola-affected area in the 21 days before illness onset. No symptoms or risks identified at this time. Initial Sepsis Screen: Does the patient meet any 2 criteria? No. Patient's initial sepsis screen is negative. Does the patient have a suspected source of infection? No. Patient's initial sepsis screen is negative. Risk Assessment: Do you want to hurt yourself or someone else? Patient reports no desire to harm self or others. Onset of symptoms was August 11, 2021. 15:05 Method Of Arrival: Ambulatory iw 15:05 Acuity: EDDY 4 iw Historical: - Allergies: 15:07 No Known Allergies; iw - PMHx: 15:07 Kidney stone; iw Vital Signs: 15:05 BP 121 / 69; Pulse 89; Resp 16; Pulse Ox 99% on R/A; iw ED Course: 14:21 Patient arrived in ED. mr 15:05 Blessing Ramsay, RN is Primary Nurse. iw 15:07 Triage completed. iw 15:07 Pavel Garcia PA is PHCP. [facility] 15:07 Leonard Hensley MD is Attending Physician. [facility] 15:23 SARS-COV-2 RT PCR (Document "Date of Onset" if Symptomatic) Sent. zm 15:23 Strep Sent. zm 15:23 Influenza Screen (a \\T\\ B) Sent. zm 15:23 COVID swab sent to lab. Flu and/or RSV swab sent to lab. Strep swab sent to lab. zm 15:23 Patient has correct armband on for positive identification. Bed in low position. Call zm light in reach. Administered Medications: No medications were administered Outcome: 17:04 Discharge ordered by MD. barcenas 17:31 Patient left the ED. diana Signatures: Pavel Garcia PA PA jmm Rivera Earline [place], Niya Pfeiffer RN
--- NOTE | 2021-08-11 17:05 | EDPHYS ---
Physician Documentation [facility] Name: Sachin Manjarrez Age: 25 yrs Sex: Male : 1995 Arrival Date: 08/11/2021 Time: 14:21 Bed DIS1 Private MD: ED Physician Leonard Hensley HPI: 08/11 15:10 This 25 yrs old Male presents to ER via Ambulatory with complaints of Cough, Sore jmm Throat. 15:10 The patient or guardian reports cough. Onset: The symptoms/episode began/occurred jm gradually, 2 day(s) ago. Modifying factors: The symptoms are alleviated by nothing, the symptoms are aggravated by nothing. Associated signs and symptoms: Pertinent positives: fever, sore throat. The patient has not experienced similar symptoms in the past. Historical: - Allergies: 15:07 No Known Allergies; iw - PMHx: 15:07 Kidney stone; iw ROS: 15:10 Constitutional: Positive for body aches, chills. [facility] 15:10 ENT: Positive for sore throat. 15:10 Respiratory: Positive for cough. 15:10 All other systems are negative. Exam: 15:10 Constitutional: This is a well developed, well nourished patient who is awake, alert, jmm and in no acute distress. Head/Face: atraumatic. Eyes: EOMI, no conjunctival erythema appreciated ENT: Moist Mucus Membranes Neck: Trachea midline, Supple Chest/axilla: Normal chest wall appearance and motion. Cardiovascular: Regular rate and rhythm. No edema appreciated Respiratory: Normal respirations, no respiratory distress appreciated Abdomen/GI: Non distended, soft Back: Normal ROM Skin: General appearance color normal MS/ Extremity: Moves all extremities, no obvious deformities appreciated, no edema noted to the lower extremities Neuro: Awake and alert Psych: Behavior is normal, Mood is normal, Patient is cooperative and pleasant Vital Signs: 15:05 BP 121 / 69; Pulse 89; Resp 16; Pulse Ox 99% on R/A; iw MDM: 15:10 Patient medically screened. karen 17:03 Data reviewed: vital signs, nurses notes. Counseling: I had a detailed discussion with jm the patient and/or guardian regarding: the historical points, exam findings, and any diagnostic results supporting the discharge/admit diagnosis, lab results, the need for outpatient follow up, to return to the emergency department if symptoms worsen or persist or if there are any questions or concerns that arise at home. 08/11 15:13 Order name: Influenza Screen (a \\T\\ B); Complete Time: 15:45 [facility] 08/11 15:13 Order name: Strep; Complete Time: 16:09 [facility] 08/11 15:13 Order name: SARS-COV-2 RT PCR (Document "Date of Onset" if Symptomatic); Complete Time: [facility] 17:02 08/11 16:09 Order name: Throat Culture EDMS Administered Medications: No medications were administered Disposition Summary: 08/11/21 17:04 Discharge Ordered Location: Home [facility] Condition: Stable [facility] Diagnosis - influenza [facility] Followup: [facility] - With: Private Physician - When: 2 - 3 days - Reason: Recheck today's complaints, Continuance of care, Re-evaluation by your physician Discharge Instructions: - Discharge Summary Sheet [facility] - Influenza, Adult [facility] Forms: - Medication Reconciliation Form [facility] - Thank You Letter [facility] - Antibiotic Education [facility] - Prescription Opioid Use [facility] Prescriptions: - Tamiflu 75 mg Oral Capsule - take 1 tablet by ORAL route every 12 hours for 5 days; 10 tablet; Refills: 0, [facility] Product Selection Permitted Signatures: Dispatcher [employer] EDLeonard Colbert MD MD cha Mickail, Joel, PA PA jmm Williams, Irene, RN RN iw
[2021-08-11 17:40] VITALS: BP 121/69; O2SAT 99
== END 2021-08-11 17:31 | disposition home or self-care (01) ==
LOC: ER 14:16
DX: J11.1 Influenza due to unidentified influenza virus with other respiratory manifestations (principal); Z20.822 Contact with and (suspected) exposure to COVID-19
CPT/HCPCS: 87070; 87081; 87804; 99282; U0003

== ENCOUNTER 2022-02-20 02:44 | Emergency (ER) | payer OTHER, SELFPAY ==
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
[2022-02-20] MEDS ORDERED: ACETAMINOPHEN 500 MG TAB ONE (03:14)
[2022-02-20] MEDS ORDERED: KETOROLAC 30 MG/ML INJ ONE (03:14)
[2022-02-20 04:23] LABS: SARS-COV-2 RT PCR POSITIVE (NEGATIVE)
--- NOTE | 2022-02-20 04:40 | ER ---
Nurse's Notes [facility] Name: Sachin Manjarrez Age: 26 yrs Sex: Male : 1995 Arrival Date: 02/20/2022 Time: 02:54 Bed 11 Private MD: Diagnosis: SARS-associated coronavirus as the cause of diseases classified elsewhere Presentation: 02/20 03:02 Chief complaint: Patient states: I have been having nausea, body aches, and fever for a ha1 couple of days. Coronavirus screen: Vaccine status: Patient reports receiving the 2nd dose of the covid vaccine. Pfiser. Ebola Screen: No symptoms or risks identified at this time. Initial Sepsis Screen: Does the patient meet any 2 criteria? No. Patient's initial sepsis screen is negative. Does the patient have a suspected source of infection? No. Patient's initial sepsis screen is negative. Risk Assessment: Do you want to hurt yourself or someone else? Patient reports no desire to harm self or others. Onset of symptoms was February 16, 2022. 03:02 Method Of Arrival: Ambulatory ha1 03:02 Acuity: EDDY 3 ha1 Triage Assessment: 03:06 General: Appears comfortable, Behavior is calm, cooperative. Pain: Complains of pain in ha1 head Pain does not radiate. Pain at worst was 9 out of 10 on a pain scale. Quality of pain is described as pressure, Alleviated by medications, rest. EENT: No deficits noted. No signs and/or symptoms were reported regarding the EENT system. Neuro: Level of Consciousness is awake, alert, obeys commands, Oriented to person, place, time, situation. Cardiovascular: Capillary refill < 3 seconds Patient's skin is warm and dry. Respiratory: Airway is patent Trachea midline Respiratory effort is even, unlabored, Respiratory pattern is regular, symmetrical, Breath sounds are clear bilaterally. GI: Abdomen is flat, non-distended, Bowel sounds present X 4 quads. Reports nausea, vomiting. : No deficits noted. No signs and/or symptoms were reported regarding the genitourinary system. Derm: No signs and/or symptoms reported regarding the dermatologic system. Skin is pink, warm \T\ dry. Musculoskeletal: Circulation, motion, and sensation intact. Range of motion: intact in all extremities. Historical: - Allergies: 03:06 No Known Allergies; ha1 - Home Meds: 03:06 None [Active]; ha1 - Immunization history:: Adult Immunizations up to date. - Social history:: Smoking status: Patient reports the use of cigarette tobacco products, denies chronic smoking, but will smoke occasionally. - Family history:: pertinent for. Screenin:09 Abuse screen: Denies threats or abuse. Denies injuries from another. Nutritional ha1 screening: No deficits noted. Tuberculosis screening: No symptoms or risk factors identified. Fall Risk None identified. Assessment: 03:00 General: see triage. ha1 03:50 Reassessment: Patient and/or family updated on plan of care and expected duration. Pain ha1 level reassessed. Patient is alert, oriented x 3, equal unlabored respirations, skin warm/dry/pink. Patient states feeling better. Patient states symptoms have improved. 04:33 Reassessment: Patient and/or family updated on plan of care and expected duration. Pain ha1 level reassessed. Patient is alert, oriented x 3, equal unlabored respirations, skin warm/dry/pink. in shift at the bedside. Vital Signs: 03:02 BP 128 / 82; Pulse 94; Resp 16; Temp 98.3; Pulse Ox 100% on R/A; Weight 63.5 kg; Height ha1 5 ft. 9 in. (175.26 cm); 03:50 BP 125 / 80; Pulse 90; Resp 18 S; Pulse Ox 99% on R/A; ha1 04:33 BP 126 / 81; Pulse 90; Resp 16 S; Pulse Ox 98% on R/A; ha1 03:02 Body Mass Index 20.67 (63.50 kg, 175.26 cm) ha1 ED Course: 02:54 Patient arrived in ED. ja2 02:57 Marianna Capone RN is Primary Nurse. ha1 02:58 Darien Land MD is Attending Physician. rt 03:06 Triage completed. ha1 03:06 Arm band placed on right wrist. ha1 03:09 Patient has correct armband on for positive identification. Bed in low position. Call ha1 light in reach. Side rails up X 1. 05:01 No provider procedures requiring assistance completed. Patient did not have IV access ha1 during this emergency room visit. Administered Medications: 03:15 Drug: Tylenol 1000 mg Route: PO; ha1 04:12 Follow up: Response: No adverse reaction; Pain is decreased ha1 03:17 Drug: Ketorolac 30 mg Route: IM; Site: right vastus lateralis; ha1 03:50 Follow up: Response: No adverse reaction; Pain is decreased ha1 Medication: 05:02 VIS not applicable for this client. ha1 Outcome: 04:39 Discharge ordered by MD. rt 05:01 Discharged to home ambulatory. ha1 05:01 Condition: stable 05:01 Discharge instructions given to patient, Instructed on discharge instructions, follow up and referral plans. Demonstrated understanding of instructions, follow-up care, medications, Prescriptions given X 1. 05:02 Patient left the ED. ha1 Signatures: Lisandra Lynn ja2 Marianna Capone RN RN ha1 Darien Land MD MD rt Corrections: (The following items were deleted from the chart) 04:14 04:00 BP 125 / 80; Pulse 90bpm; Resp 18bpm; Spontaneous; Pulse Ox 99% RA; ha1 ha1
--- NOTE | 2022-02-20 04:40 | EDPHYS ---
Physician Documentation [facility] Name: Sachin Manjarrez Age: 26 yrs Sex: Male : 1995 Arrival Date: 02/20/2022 Time: 02:54 Bed 11 Private MD: ED Physician Darien Land HPI: 02/20 03:15 This 26 yrs old Male presents to ER via Ambulatory with complaints of Vomiting, Body rt Aches, Headache, Fever. 03:15 The patient presents to the emergency department with nausea, vomiting. Onset: The rt symptoms/episode began/occurred yesterday. The symptoms are aggravated by nothing. The symptoms are alleviated by nothing. Severity of symptoms: At their worst the symptoms were mild. Patient presents to the ED with body aches, headache starting yesterday. Patient states that he felt feverish but denies having a documented fever. The patient had nausea vomiting yesterday but no nausea currently. Denies other acute complaints at this time, symptoms are mild in severity, no other aggravating or alleviating factors.. Historical: - Allergies: 03:06 No Known Allergies; ha1 - Home Meds: 03:06 None [Active]; ha1 - Immunization history:: Adult Immunizations up to date. - Social history:: Smoking status: Patient reports the use of cigarette tobacco products, denies chronic smoking, but will smoke occasionally. - Family history:: pertinent for. ROS: 03:15 Eyes: Negative for injury, pain, redness, and discharge, ENT: Negative for injury, rt pain, and discharge, Neck: Negative for injury, pain, and swelling, Cardiovascular: Negative for chest pain, palpitations, and edema, Respiratory: Negative for shortness of breath, cough, wheezing, and pleuritic chest pain, Skin: Negative for injury, rash, and discoloration, Neuro: Negative for headache, weakness, numbness, tingling, and seizure, Psych: Negative for depression, anxiety, suicide ideation, homicidal ideation, and hallucinations. 03:15 Constitutional: Positive for Reports subjective fever, malaise. 03:15 Abdomen/GI: Positive for nausea and vomiting, Negative for abdominal pain. Exam: 03:15 Constitutional: This is a well developed, well nourished patient who is awake, alert, rt and in no acute distress. Head/Face: Normocephalic, atraumatic. Eyes: Pupils equal round and reactive to light, extra-ocular motions intact. Lids and lashes normal. Conjunctiva and sclera are non-icteric and not injected. Cornea within normal limits. Periorbital areas with no swelling, redness, or edema. Neck: Trachea midline, no thyromegaly or masses palpated, and no cervical lymphadenopathy. Supple, full range of motion without nuchal rigidity, or vertebral point tenderness. No Meningismus. Chest/axilla: Normal chest wall appearance and motion. Nontender with no deformity. No lesions are appreciated. Cardiovascular: Regular rate and rhythm with a normal S1 and S2. No gallops, murmurs, or rubs. Normal PMI, no JVD. No pulse deficits. Respiratory: Lungs have equal breath sounds bilaterally, clear to auscultation and percussion. No rales, rhonchi or wheezes noted. No increased work of breathing, no retractions or nasal flaring. Abdomen/GI: Soft, non-tender, with normal bowel sounds. No distension or tympany. No guarding or rebound. No evidence of tenderness throughout. Skin: Warm, dry with normal turgor. Normal color with no rashes, no lesions, and no evidence of cellulitis. MS/ Extremity: Pulses equal, no cyanosis. Neurovascular intact. Full, normal range of motion. Neuro: Awake and alert, GCS 15, oriented to person, place, time, and situation. Cranial nerves II-XII grossly intact. Motor strength 5/5 in all extremities. Sensory grossly intact. Cerebellar exam normal. Normal gait. Psych: Awake, alert, with orientation to person, place and time. Behavior, mood, and affect are within normal limits. Vital Signs: 03:02 BP 128 / 82; Pulse 94; Resp 16; Temp 98.3; Pulse Ox 100% on R/A; Weight 63.5 kg; Height ha1 5 ft. 9 in. (175.26 cm); 03:50 BP 125 / 80; Pulse 90; Resp 18 S; Pulse Ox 99% on R/A; ha1 04:33 BP 126 / 81; Pulse 90; Resp 16 S; Pulse Ox 98% on R/A; ha1 03:02 Body Mass Index 20.67 (63.50 kg, 175.26 cm) ha1 MDM: 03:00 Patient medically screened. rt 04:40 Differential diagnosis: Flu, COVID, vomiting. Data reviewed: vital signs, nurses notes. rt ED course: Patient presents to the ED with headache, body aches, vomiting.. 04:43 ED course: Patient presents to the ED with headache, vomiting. Patient is found to have rt COVID infection. Vital signs are stable, no hypoxia. Patient stable for outpatient care, return precautions discussed.. 02/20 03:07 Order name: COVID-19/FLU A+B; Complete Time: 04:26 rt Administered Medications: 03:15 Drug: Tylenol 1000 mg Route: PO; ha1 04:12 Follow up: Response: No adverse reaction; Pain is decreased ha1 03:17 Drug: Ketorolac 30 mg Route: IM; Site: right vastus lateralis; ha1 03:50 Follow up: Response: No adverse reaction; Pain is decreased ha1 Disposition Summary: 02/20/22 04:39 Discharge Ordered Location: Home rt Problem: new rt Symptoms: have improved rt Condition: Stable rt Diagnosis - SARS-associated coronavirus as the cause of diseases classified elsewhere rt Followup: rt - With: Private Physician - When: 5 - 6 days - Reason: Discharge Instructions: - Discharge Summary Sheet rt - COVID-19 rt Forms: - Medication Reconciliation Form rt - Thank You Letter rt - Antibiotic Education rt - Prescription Opioid Use rt Prescriptions: - Zofran 4 mg Oral Tablet - take 1 tablet by ORAL route every 12 hours As needed; 20 tablet; Refills: 0, rt Product Selection Permitted Signatures: Dispatcher [employer] Marianna Davison RN RN 1 Darien Land MD MD rt
[2022-02-20 05:08] VITALS: TEMP 98.3
[2022-02-20 05:10] VITALS: BP 126/81; O2SAT 98
== END 2022-02-20 05:02 | disposition home or self-care (01) ==
LOC: ER 02:44
DX: U07.1 COVID-19 (principal); F17.210 Nicotine dependence, cigarettes, uncomplicated
CPT/HCPCS: 0240U; 96372; 99283

== ENCOUNTER 2024-07-10 20:32 | Emergency (ER) | payer OTHER ==
--- NOTE | 2024-07-10 21:08 | RAD REPORT ---
EXAM: Chest Pa And Lat (2 Views) HISTORY: 28 years Male CHEST PAIN COMPARISON: 02/18/2013 FINDINGS: LUNGS/PLEURA: The lungs are clear. No pleural effusions or pneumothorax. No pulmonary edema. CARDIAC/MEDIASTINUM: The cardiac silhouette is within normal limits. UPPER ABDOMEN: No significant abnormality. BONES: No acute abnormality. LINES/TUBES/OTHER: N/A IMPRESSION: No evidence of acute cardiopulmonary disease. No significant change from prior.
[2024-07-10] MEDS ORDERED: KETOROLAC 30 MG/ML INJ ONE (21:28)
[2024-07-10 22:04] LABS: Anion Gap 5.1 mEq/L (5.0-15.0); Potassium 4.1 mEq/L (3.5-5.1)
[2024-07-10 22:09] LABS: Absolute Basophils 0.1 K/uL (0-0.5); Absolute Eosinophils 0.1 K/uL (0-0.5); Absolute Lymphocytes (CBC) 1.6 K/uL (0.7-4.9); Absolute Monocytes 0.6 K/uL (0.1-1.3); Absolute Neutrophil 4.8 K/uL (1.8-8.0); Basophils % 0.9 % (0-1.3); Eosinophils % 1.6 % (0-4.4); Hematocrit 41.7 % (39.6-49.0); Hemoglobin 14.6 g/dL (13.6-17.9); Lymphocytes % 21.9 % (15.3-44.8); MCH 31.2 pg (27.0-35.0); MCHC 35.1 g/dL (32.0-36.0); MPV 8.2 fL (7.6-11.3); Monocytes % 8.7 % (3.3-12.3); Neutrophils % 66.9 % (41.7-73.7); Nucleated Red Blood Cells % 0.1 % (0-0); Platelets 311 thou/uL (152-406); RBC Red Blood Cell Count 4.69 M/uL (4.33-5.43); Red Cell Distribution Width 12.8 % (12.1-15.2)
--- NOTE | 2024-07-10 22:38 | EDPHYS ---
Physician Documentation [facility] Name: Sachin Manjarrez Age: 28 yrs Sex: Male : 1995 Arrival Date: 07/10/2024 Time: 20:32 Bed 17 Private MD: ED Physician Coleman Glez HPI: 07/10 20:52 This 28 yrs old Male presents to ER via Ambulatory with complaints of Chest Pain. rn 20:52 The patient or guardian reports chest pain that is located primarily in the anterior rn chest wall, left. The pain does not radiate. Associated signs and symptoms: Pertinent negatives: abdominal pain, cough, diaphoresis, lower extremity pain, lower extremity swelling, near syncope, recent travel, shortness of breath, syncope, vomiting. The chest pain is described as sharp, stabbing. Duration: The patient or guardian reports multiple episodes. Modifying factors: The symptoms are alleviated by nothing. the symptoms are aggravated by deep breath. Severity of pain: At its worst the pain was mild in the emergency department the pain is unchanged. The patient has experienced a previous episode. Patient reports left-sided chest pain that began earlier today. Worse with deep inspiration. Patient vapes. Denies any fever. No recent illness or current illness. No cough or hemoptysis. No history of DVT or PE. Does have history of pneumothorax. Denies shortness of breath. Reports breathing is limited secondary to pain. Denies any injury. No abdominal pain. No back pain.. Historical: - Allergies: 20:46 No Known Allergies; ha1 - PMHx: 20:46 Pneumothorax; ha1 - Immunization history:: Adult Immunizations up to date. - Infectious Disease History:: Denies. - Social history:: Smoking status: Reported history of juuling and/or vaping. - Family history:: not pertinent. - Hospitalizations: : No recent hospitalization is reported. ROS: 20:52 Constitutional: Negative for fever, chills, and weight loss, Cardiovascular: Positive rn for left sided chest pain Respiratory: Negative for shortness of breath, cough, wheezing Abdomen/GI: Negative for abdominal pain, nausea, vomiting, diarrhea, and constipation, MS/Extremity: Negative for injury and deformity, Neuro: Negative for headache, weakness, numbness, tingling, and seizure, Exam: 20:52 Constitutional: This is a well developed, well nourished patient who is awake, alert, rn and in no acute distress. Smiling and making jokes Chest/axilla: No crepitus or focal tenderness Cardiovascular: Regular rate and rhythm. No pulse deficits. Respiratory: Speaking full sentences, unlabored. No increased work of breathing, no retractions or nasal flaring. Abdomen/GI: Soft, non-tender MS/ Extremity: Pulses equal, no cyanosis. Neuro: Awake and alert, GCS 15 21:33 ECG was reviewed by the Attending Physician. rn Vital Signs: 20:31 BP 114 / 75; Pulse 91; Resp 17 S; Temp 97.9; Pulse Ox 100% on R/A; Weight 61.23 kg; ha1 Height 5 ft. 10 in. ; 23:15 BP 121 / 75; Pulse 66; Resp 18; Temp 98.2; Pulse Ox 100% ; kj2 20:31 Body Mass Index 19.37 (61.23 kg, 177.8 cm) ha1 MDM: 20:38 Medical Screening Exam initiated rn 22:35 Differential diagnosis: acute pericarditis, anxiety, chest wall pain, costochondritis, rn gastroesophageal reflux disease (GERD), pleurisy, pneumonia, pneumothorax. Data reviewed: vital signs, nurses notes, lab test result(s), EKG, radiologic studies, plain films, and as a result, I will discharge patient. Counseling: I had a detailed discussion with the patient and/or guardian regarding the historical points, exam findings, and any diagnostic results supporting the discharge/admit diagnosis, lab results, radiology results, the need for outpatient follow up, to return to the emergency department if symptoms worsen or persist or if there are any questions or concerns that arise at home. Response to treatment: the patient's symptoms have mildly improved after treatment, and as a result, I will discharge patient. Special discussion: Based on the patient's history, exam, and Dx evaluation, there is no indication for emergent intervention or inpatient Tx. It is understood by the patient/guardian that if the Sx's persist or worsen they need to return immediately for re-evaluation. I discussed with the patient/guardian in detail that at this point there is no indication for admission to the hospital. It is understood, however, that if the symptoms persist or worsen the patient needs to return immediately for re-evaluation. ED course: No acute findings and workup. Advised to stop vaping. D-dimer negative. Troponin negative. No ischemia on ECG. 100% on room air. No pneumothorax on chest x-ray imaging per my interpretation I have personally reviewed all of the results, including but not limited to blood tests and imaging deemed necessary to safely discharge this patient at this time. All results given to and printed out for patient. I personally went over all the results with the patient and answered all questions. Patient will follow-up with PCP and or specialist as discussed. Return precautions given and understood.. 07/10 20:50 Order name: CBC with Diff; Complete Time: 22:29 rn 07/10 20:50 Order name: Basic Metabolic Panel; Complete Time: 22:29 07/10 20:50 Order name: Troponin High Sensitivity; Complete Time: 22: rn 07/10 20:50 Order name: D-Dimer; Complete Time: 22:29 07/10 20:50 Order name: XRAY Chest Pa And Lat (2 Views); Complete Time: 21:08 07/10 20:50 Order name: IV Start; Complete Time: 21:32 rn 07/10 20:50 Order name: EKG - Nurse/Tech; Complete Time: 20:52 rn EC:33 Rate is 95 beats/min. Rhythm is regular. Right axis deviation noted. QRS is positive in rn lead aVF and negative in lead I. QRS interval is normal. QT interval is normal. No Q waves. T waves are Inverted in leads V5, V6. No ST changes noted. Clinical impression: NSR w/ Non-specific ST/T Changes. Interpreted by me. Reviewed by me. Administered Medications: 21:41 Drug: Ketorolac IVP 30 mg IVP once Route: IVP; Site: right antecubital; ha1 23:23 Follow up: Response: No adverse reaction kj2 Disposition Summary: 07/10/24 22:37 Discharge Ordered Notes: Location: Home rn Problem: new rn Symptoms: have improved rn Condition: Stable rn Diagnosis - Chest pain, unspecified rn Followup: rn - With: Private Physician - When: As needed - Reason: Recheck today's complaints, Re-evaluation by your physician Discharge Instructions: - Discharge Summary Sheet rn - Nonspecific Chest Pain, Adult rn - Pleurisy rn - Steps to Quit Smoking rn Forms: - Medication Reconciliation Form rn - Antibiotic validation intern - Prescription Opioid Use rn - Patient Portal Instructions rn - Leadership Thank You Letter rn Signatures: Dispatcher [employer] EDMS Coleman Glez MD MD rn Ayala, Heidy, RN RN ha1 Dara Desir RN kj2 Corrections: (The following items were deleted from the chart) 20:50 20:50 CBC+H.LAB.BRZ ordered. EDMS EDMS 20:50 20:50 BASIC METABOLIC PANEL+C.LAB.BRZ ordered. EDMS EDMS 20:50 20:50 Troponin High Sensitivity+C.LAB.BRZ ordered. EDMS EDMS 20:50 20:50 D-DIMER+COAG.LAB.BRZ ordered. EDMS EDMS 20:50 20:50 Chest Pa And Lat (2 Views)+RAD.RAD.BRZ ordered. EDMS EDMS
--- NOTE | 2024-07-10 22:38 | ER ---
Nurse's Notes [facility] Name: Sachin Manjarrez Age: 28 yrs Sex: Male : 1995 Arrival Date: 07/10/2024 Time: 20:32 Bed 17 Private MD: Diagnosis: Chest pain, unspecified Presentation: 07/10 20:31 Chief complaint: Patient states: CHEST PAIN STARTED ONE HOUR AGO. ha1 20:31 Coronavirus screen: Client denies travel out of the [place] in the last 14 days. Ebola ha1 Screen: No symptoms or risks identified at this time. Initial Sepsis Screen: Does the patient meet any 2 criteria? No. Patient's initial sepsis screen is negative. Does the patient have a suspected source of infection? No. Patient's initial sepsis screen is negative. Risk Assessment: Do you want to hurt yourself or someone else? Patient reports no desire to harm self or others. Onset of symptoms was July 10, 2024. 20:31 Method Of Arrival: Ambulatory ha1 20:31 Acuity: EDDY 2 ha1 Triage Assessment: 20:46 General: Appears uncomfortable, Behavior is calm, cooperative. Pain: Complains of pain ha1 in chest Pain currently is 7 out of 10 on a pain scale. Neuro: Level of Consciousness is awake, alert, obeys commands, Oriented to person, place, time, situation. Cardiovascular: Reports chest pain, Capillary refill < 3 seconds Patient's skin is warm and dry. Respiratory: Airway is patent Respiratory effort is even, unlabored, Respiratory pattern is regular, symmetrical. GI: No signs and/or symptoms were reported involving the gastrointestinal system. Historical: - Allergies: 20:46 No Known Allergies; ha1 - PMHx: 20:46 Pneumothorax; ha1 - Immunization history:: Adult Immunizations up to date. - Infectious Disease History:: Denies. - Social history:: Smoking status: Reported history of juuling and/or vaping. - Family history:: not pertinent. - Hospitalizations: : No recent hospitalization is reported. Screenin:48 Abuse screen: Denies threats or abuse. Denies injuries from another. Nutritional ha1 screening: No deficits noted. Tuberculosis screening: No symptoms or risk factors identified. 22:30 [facility] ED Fall Risk Assessment (Adult) History of falling in the last 3 months, kj2 including since admission No falls in past 3 months (0 pts) Confusion or Disorientation No (0 pts) Intoxicated or Sedated No (0 pts) Impaired Gait No (0 pts) Mobility Assist Device Used No (0 pt) Altered Elimination No (0 pt) Score/Fall Risk Level 0 - 2 = Low Risk Maintained a safe environment, Hourly rounding (assess needs \T\ fall precautionary measures) done. Assessment: 21:50 General: Appears in no apparent distress. comfortable, Behavior is calm, cooperative. al5 Pain: Complains of pain in left clavicle and anterior aspect of left upper chest Pain began 2 hours ago. Neuro: Level of Consciousness is awake, alert, obeys commands, Oriented to person, place, time, situation. Cardiovascular: Capillary refill < 3 seconds Patient's skin is warm and dry. Rhythm is sinus rhythm. Respiratory: Airway is patent Respiratory effort is even, unlabored, Respiratory pattern is regular, symmetrical. GI: No signs and/or symptoms were reported involving the gastrointestinal system. : No signs and/or symptoms were reported regarding the genitourinary system. EENT: No signs and/or symptoms were reported regarding the EENT system. Derm: Skin is intact, is healthy with good turgor, Skin is pink, warm \T\ dry. normal. Musculoskeletal: No signs and/or symptoms reported regarding the musculoskeletal system. 22:30 Reassessment: Patient appears in no apparent distress at this time. Patient and/or kj2 family updated on plan of care and expected duration. Pain level reassessed. Patient is alert, oriented x 3, equal unlabored respirations, skin warm/dry/pink. 23:00 Reassessment: Patient appears in no apparent distress at this time. Patient and/or kj2 family updated on plan of care and expected duration. Pain level reassessed. Patient is alert, oriented x 3, equal unlabored respirations, skin warm/dry/pink. Pain: Denies pain. 23:24 Reassessment: Patient appears in no apparent distress at this time. Patient and/or kj2 family updated on plan of care and expected duration. Pain level reassessed. Patient is alert, oriented x 3, equal unlabored respirations, skin warm/dry/pink. 23:25 Pain: patient denies pain at discharge, ketorolac effective. kj2 Vital Signs: 20:31 BP 114 / 75; Pulse 91; Resp 17 S; Temp 97.9; Pulse Ox 100% on R/A; Weight 61.23 kg; ha1 Height 5 ft. 10 in. ; 23:15 BP 121 / 75; Pulse 66; Resp 18; Temp 98.2; Pulse Ox 100% ; kj2 20:31 Body Mass Index 19.37 (61.23 kg, 177.8 cm) ha1 ED Course: 20:34 Patient arrived in ED. im 20:38 Coleman Glez MD is Attending Physician. rn 20:46 Triage completed. ha1 21:02 XRAY Chest Pa And Lat (2 Views) In Process Unspecified. EDMS 21:32 Troponin High Sensitivity Sent. ha1 21:32 Basic Metabolic Panel Sent. ha1 21:32 CBC with Diff Sent. ha1 21:32 D-Dimer Sent. ha1 21:32 Inserted saline lock: 22 gauge in right antecubital area, using aseptic technique. ha1 Blood collected. Flushed with 10 mL NS. 21:41 Arm band placed on right wrist. Patient placed in the treatment room, in view of staff al5 members, on pulse oximetry. 21:49 Taty Zepeda, LYNDSEY is Primary Nurse. al5 21:51 Patient has correct armband on for positive identification. Bed in low position. Call al5 light in reach. Side rails up X 1. Provided Education on: plan of care. Client placed on continuous cardiac and pulse oximetry monitoring. NIBP monitoring applied. surveillance monitor on. 22:30 Report received from Taty Rothman RN. kj2 23:25 No provider procedures requiring assistance completed. IV discontinued, intact, kj2 bleeding controlled, No redness/swelling at site. Pressure dressing applied. Patient maintains SpO2 saturation greater than 95% on room air. Administered Medications: 21:41 Drug: Ketorolac IVP 30 mg IVP once Route: IVP; Site: right antecubital; ha1 23:23 Follow up: Response: No adverse reaction kj2 Medication: 21:51 VIS not applicable for this client. al5 Outcome: 22:37 Discharge ordered by . rn 23:25 Discharged to home ambulatory, kj2 23:25 Condition: stable 23:25 Discharge instructions given to patient, Instructed on discharge instructions, follow up and referral plans. Demonstrated understanding of instructions, follow-up care, 23:26 Patient left the ED. kj2 Signatures: Dispatcher [employer] EDColeman Carlson MD MD rn Ayala, Heidy RN RN ha1 Ana Mitchell Amanda RN RN al5 Dara Desir RN RN kj2 Corrections: (The following items were deleted from the chart) 21:54 21:50 Pain: Complains of pain in chest Pain radiates to back Pain began 2 hours ago. [id number]
[2024-07-11 00:18] VITALS: BP 121/75; TEMP 98.2; O2SAT 100
--- NOTE | 2024-07-14 12:20 | EKG ---
Test Date: 2024-07-10 Test Time: 20:44:07 Room Service Runner: ALESSANDRO MEASUREMENT RESULTS: Intervals: Rate: 95 UT: 122 QRSD: 98 QT: 320 QTc: 402 [place]: P: UT: 122 QRS: 139 T: -31 INTERPRETIVE STATEMENTS: Normal sinus rhythm Right axis deviation Nonspecific T wave abnormality Abnormal ECG Compared to ECG 04/10/2013 14:51:23 T-wave abnormality now present Sinus arrhythmia no longer present Electronically Signed On 07-14-24 12:11:02 CDT by Evan Mojica
== END 2024-07-10 23:26 | disposition home or self-care (01) ==
LOC: ER 20:32
DX: R07.89 Other chest pain (principal)
CPT/HCPCS: 36415; 71046; 80048; 84484; 85025; 85379; 93005; 96374; 99285